=== PATIENT | male | born 1940 | race African-American/Black ===

== ENCOUNTER 2016-04-04 11:36 | Outpatient (CLI) | payer MEDICARE ==
[2016-04-04 12:34] LABS: Hemoglobin A1c 10.4 % (4.0-6.0)
[2016-04-04 12:45] LABS: ALT (SGPT) 29 U/L (0-55); AST (SGOT) 20 U/L (5-34); Albumin 4.1 g/dL (3.4-4.8); Alkaline Phosphatase 80 U/L (40-150); Anion Gap 15 mmol/L (10-20); BUN (Urea Nitrogen) 30 mg/dL (8.4-25.7); Bilirubin, Total 0.4 mg/dL (0.2-1.2); Calc. Creatinine Clearance 0 mL/min (70-130); Calcium 10.4 mg/dL (7.8-10.44); Carbon Dioxide 32 mmol/L (23-31); Cardiac Risk 3.5 (Less than 4.5); Chloride 98 mmol/L (98-107); Cholesterol 132 mg/dL (< 200 Desired); Estimated GFR-MDRD 46; Globulin 3.4 g/dL (2.4-3.5); Glucose 333 mg/dL (83-110); HDL Cholesterol 38 mg/dL (>60 Neg Risk); LDL Cholesterol, Calculated 70 mg/dL; Potassium 4.2 mmol/L (3.5-5.1); Protein, Total 7.5 g/dL (5.8-8.1); Sodium 141 mmol/L (136-145); Triglycerides 122 mg/dL (Less than 150)
== END 2016-04-04 11:37 ==
LOC: MERGE 11:36 → MADLABBHPM 11:36
PROVIDERS: ATTEND Family Medicine
DX: E87.6 Hypokalemia (principal)
CPT/HCPCS: 36415; 80053; 80061; 83036

== ENCOUNTER 2016-08-08 07:18 | Outpatient (CLI) | payer MEDICARE ==
[2016-08-08 07:59] LABS: Hemoglobin A1c 10.1 % (4.0-6.0)
[2016-08-08 08:19] LABS: #Basophils 0.1 thou/uL (0.0-0.2); #Eosinphils 0.2 thou/uL (0.0-0.7); #Lymphocytes 1.9 thou/uL (1.20-3.40); #Monocytes 0.5 thou/uL (0.11-0.59); #Neutrophils 7.8 thou/uL (1.40-6.50); %Basophils 0.6 % (0.0-1.0); %Eosinophils 1.9 % (0.0-10.0); %Monocytes 4.8 % (0.0-10.0); %Neutrophils 74.6 % (42.0-75.0); Mean Corpuscular HGB CONC 34.9 g/dL (32.0-36.0); Mean Corpuscular Hemoglobin 32.3 pg (27.0-31.0); Mean Corpuscular Volume 92.6 fl (80.0-94.0); Platelet Count 630 thou/uL (130-400); RBC Distribution Width 13.8 % (11.5-14.5); Red Blood Cell (RBC) Count 4.63 mill/uL (4.70-6.10); White Blood Cell (WBC) Count 10.4 thou/uL (4.8-10.8)
[2016-08-08 08:36] LABS: ALT (SGPT) 21 U/L (8-55); AST (SGOT) 16 U/L (5-34); Albumin 3.9 g/dL (3.4-4.8); Alkaline Phosphatase 87 U/L (40-150); Anion Gap 13 mmol/L (10-20); BUN (Urea Nitrogen) 15 mg/dL (8.4-25.7); Bilirubin, Total 0.6 mg/dL (0.2-1.2); Calc. Creatinine Clearance 0 mL/min (70-130); Calcium 9.7 mg/dL (7.8-10.44); Carbon Dioxide 29 mmol/L (23-31); Cardiac Risk 2.6 (Less than 4.5); Chloride 104 mmol/L (98-107); Cholesterol 129 mg/dl (< 200 Desired); Estimated GFR-MDRD 68; Globulin 3.5 g/dL (2.4-3.5); Glucose 236 mg/dL (83-110); HDL Cholesterol 50 mg/dL (>60 Neg Risk); LDL Cholesterol, Calculated 68 mg/dL; Potassium 3.8 mmol/L (3.5-5.1); Protein, Total 7.4 g/dL (5.8-8.1); Sodium 142 mmol/L (136-145); Triglycerides 54 mg/dL (Less than 150)
[2016-08-08 08:45] LABS: Free T4 (Free Thyroxine) 0.85 ng/dL (0.70-1.48); Thyroid Stimulating Hormone 1.89 uIU/mL (0.35-4.94)
[2016-08-08 17:45] LABS: Creatinine, Urine 162.99 mg/dL (63-166); Microalbumin Urine 35.3 mg/dL (0.5-50.0); Microalbumin/Creat Ratio 216.6 mg/g (Less than 30)
== END 2016-08-08 07:19 ==
LOC: MADLABBHPM 07:18
PROVIDERS: ATTEND Family Medicine
DX: E11.65 Type 2 diabetes mellitus with hyperglycemia (principal)
CPT/HCPCS: 36415; 80053; 80061; 82043; 83036; 84439; 84443; 85025

== ENCOUNTER 2017-06-12 09:29 | Emergency (ER) | payer MEDICARE ==
[2017-06-12] MEDS ORDERED: cefTRIAXone\\ROCEPHIN 1 GM VIAL ONE (09:54)
[2017-06-12 10:13] LABS: #Basophils 0.1 thou/uL (0.0-0.2); #Monocytes 1.3 thou/uL (0.11-0.59); #Neutrophils 15.9 thou/uL (1.40-6.50); %Basophils 0.7 % (0.0-1.0); %Eosinophils 0.1 % (0.0-10.0); %Lymphocytes 5.6 % (21.0-51.0); %Monocytes 7.3 % (0.0-10.0); %Neutrophils 86.4 % (42.0-75.0); Hemoglobin 10.6 g/dL (14.0-18.0); Mean Corpuscular HGB CONC 36.3 g/dL (32.0-36.0); Mean Corpuscular Hemoglobin 31.1 pg (27.0-31.0); Mean Corpuscular Volume 85.6 fl (80.0-94.0); Mean Platelet Volume 6.4 fL (7.4-10.4); Platelet Count 469 thou/uL (130-400); RBC Distribution Width 13.1 % (11.5-14.5); White Blood Cell (WBC) Count 18.4 thou/uL (4.8-10.8)
[2017-06-12 10:26] LABS: ALT (SGPT) 126 U/L (8-55); AST (SGOT) 164 U/L (5-34); Albumin 2.6 g/dL (3.4-4.8); Alkaline Phosphatase 105 U/L (40-150); Anion Gap 18 mmol/L (10-20); Bilirubin, Total 0.5 mg/dL (0.2-1.2); Calc. Creatinine Clearance 0 mL/min (70-130); Calcium 8.8 mg/dL (7.8-10.44); Carbon Dioxide 33 mmol/L (23-31); Estimated GFR-MDRD 24; Globulin 3.8 g/dL (2.4-3.5); Glucose 279 mg/dL (83-110); Potassium 4.7 mmol/L (3.5-5.1); Protein, Total 6.4 g/dL (5.8-8.1); Sodium 136 mmol/L (136-145)
--- NOTE | 2017-06-12 10:31 | RAD ---
RADIOGRAPH CHEST 1 VIEW: HISTORY: A 77-year-old male with dyspnea. FINDINGS: There are no air space densities, pulmonary edema, pneumothorax, or cardiomegaly. The lateral costop hrenic angles are sharp. 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 IMPRESSION: 1. No acute cardiopulmonary findings. 2. Left subclavian pacemaker. evelyn Ledezma POS: [facility]
[2017-06-12] MEDS ORDERED: Sodium Chloride 0.9% 1,000 ML BAG ONE (10:37)
[2017-06-12] MEDS ORDERED: Sodium Chloride 0.9% 100 ML BAG ONE (10:37)
[2017-06-12 10:46] LABS: Bilirubin Negative (Negative); Blood, Urine Large (Negative); Clarity Slightly Cloudy (Clear); Glucose, Urine (Dipstick) Negative (Negative); Leukocyte Large (Negative); Nitrite Negative (Negative); Protein, Urine (Dipstick) 30 mg/dL (Neg-Trace); Specific Gravity, Urine 1.015 (1.005-1.030); pH, Urine 5.5 (5.0-9.0)
[2017-06-12 10:48] LABS: Bacteria/HPF 2+ HPF (None Seen); Squamous Epithelial 0-3 HPF (0-3)
[2017-06-12 11:17] LABS: Chloride 90 mmol/L (98-107)
[2017-06-12 11:18] LABS: BUN (Urea Nitrogen) Greater than 125 mg/dL (8.4-25.7)
--- NOTE | 2017-06-12 13:35 | CT ---
CT BRAIN WITHOUT CONTRAST: Date: 06/12/17 COMPARISON: 04/21/17. HISTORY: halfway patient with altered mental status. TECHNIQUE: Multiple contiguous axial images were obtained in a CT of the brain without contrast. FINDINGS: There is prominence of the lateral ventricles. 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 No intraventricular hemorrhage is appreciated. No downward herniation or midline shift is seen. The calvarium and overlying soft tissues are unremarkable. The visualized paranasal sinuses and masto id air cells are well aerated. IMPRESSION: 1. Slight increased prominence of the lateral ventricles could be secondary to early mild hydrocepha imtiaz. 2. Resorption of the previously seen left basal ganglia hemorrhage. POS: [facility]
== END 2017-06-12 13:41 | disposition short-term general hospital (02) ==
LOC: MADERS 09:29
DX: A41.9 Sepsis, unspecified organism (principal); N39.0 Urinary tract infection, site not specified; N19 Unspecified kidney failure; R09.02 Hypoxemia; R41.82 Altered mental status, unspecified; E11.9 Type 2 diabetes mellitus without complications; I10 Essential (primary) hypertension; K21.9 Gastro-esophageal reflux disease without esophagitis; Z86.73 Personal history of transient ischemic attack (TIA), and cerebral infarction without residual deficits; E03.9 Hypothyroidism, unspecified; N40.0 Benign prostatic hyperplasia without lower urinary tract symptoms; J44.9 Chronic obstructive pulmonary disease, unspecified
CPT/HCPCS: 51702; 70450; 71045; 80053; 81003; 81015; 83605; 85025; 85379; 87040; 87077; 87086; 87186; 93005; 94760; 96361; 96365; 96367; J0696; J3370; J7050; J7620

== ENCOUNTER 2017-07-03 12:30 | Emergency (ER) | payer MEDICARE | END 2017-07-03 14:40 | disposition E | LOC: MADERS 12:30 | DX: E11.9 Type 2 diabetes mellitus without complications; I10 Essential (primary) hypertension; E03.9 Hypothyroidism, unspecified; K21.9 Gastro-esophageal reflux disease without esophagitis; J44.9 Chronic obstructive pulmonary disease, unspecified; Z86.73 Personal history of transient ischemic attack (TIA), and cerebral infarction without residual deficits | CPT/HCPCS: 99285 ==